=== PATIENT | female | born 1970 | race Caucasian/White ===

== ENCOUNTER → 2020-01-06 12:55 | Outpatient (CLI) | payer BC, SELFPAY ==
--- NOTE | ~2020-01-06 | MM_ITS ---
EXAMINATION: MM screening [facility] BI w emely HISTORY: Screening mammogram TECHNIQUE: Craniocaudal and mediolateral oblique 3-D tomosynthesis images were obtained and synthetic 2-D images were generated. CAD analysis was submitted and interpreted. COMPARISON: Comparison to multiple prior studies sequentially, with oldest reviewed study dated 09/2015. BREAST PARENCHYMAL COMPOSITION: There are scattered areas of fibroglandular density. FINDINGS: There is no evidence of suspicious mass, calcification, or architectural distortion to sugg est malignancy in either breast. There has been no suspicious interval change. IMPRESSION: 1. No mammographic evidence of malignancy. 2. Recommend routine screening mammography in one year. BI-RADS Category 1: Negative Reviewed, dictated and finalized at location A.
== END ==
PROVIDERS: Visit Provider Nurse Practitioner
DX: Z12.31 Encounter for screening mammogram for malignant neoplasm of breast (principal)
CPT/HCPCS: 77063; 77067

== ENCOUNTER → 2020-12-24 15:29 | Outpatient (CLI) | payer BC, SELFPAY ==
--- NOTE | ~2020-12-24 | US_ITS ---
EXAMINATION: US transvaginal DATE: 12/24/2020 15:59 INDICATION: Postmenopausal bleeding Comparison:Ultrasound dated 10/17/2015 TECHNIQUE: Multiple transabdominal and endovaginal sonographic images of the pelvis performed. FINDINGS: The uterus measures 8.3 x 4.8 x 5.9 cm. The endometrial complex measures 4 mm. The right ovary measures 2.4 x 1.8 x 3.2 cm and the left ovary measures 3 x 2.1 x 2.8 cm. There are small follicles in each ovary. Normal doppler signal in both ovaries. There is no free fluid in the pelvis. There are no abnormal masses seen on either side. IMPRESSION: 1. Unremarkable pelvic ultrasound. Reviewed, dictated and finalized at location A.
== END ==
PROVIDERS: PCP Family Medicine; Visit Provider Nurse Practitioner
DX: N95.0 Postmenopausal bleeding (principal)
CPT/HCPCS: 76830

== ENCOUNTER → 2021-02-13 08:46 | Outpatient (CLI) | payer BC, SELFPAY ==
--- NOTE | ~2021-02-13 | MM_ITS ---
EXAMINATION: MM screening [facility] BI w emely HISTORY: Screening TECHNIQUE: Craniocaudal and mediolateral oblique 3-D tomosynthesis images were obtained and synthetic 2-D images were generated. CAD analysis was submitted and interpreted. COMPARISON: Comparison to multiple prior studies sequentially, with oldest reviewed study dated 03/08. BREAST PARENCHYMAL COMPOSITION: There are scattered areas of fibroglandular density. FINDINGS: There is no evidence of suspicious mass, calcification, or architectural distortion to sugg est malignancy in either breast. There has been no suspicious interval change. IMPRESSION: 1. No mammographic evidence of malignancy. 2. Recommend routine screening mammography in one year. BI-RADS Category 1: Negative Reviewed, dictated and finalized at location A.
--- NOTE | ~2021-02-13 | DEXA_ITS ---
Bone Density Report Name: Sabine Ordonez Age: 50 Sex: Female Ethnicity: White Date of : 1970 Indication: postmenopausal; screening for osteoporosis; history of glucocorticoids; Referring Provider: Alee, Mary Study: Bone densitometry was performed. Exam Date: February 13, 2021 Accession number: [id number] Bone Density: Region BMD T-score Z-score Classification AP Spine (L1-L4) 1.073 0.2 1.0 Normal Femoral Neck (Left) 0.893 0.4 1.2 Normal Total Hip (Left) 0.995 0.4 0.9 Normal Femoral Neck (Right) 0.875 0.2 1.0 Normal Total Hip (Right) 0.951 0.1 0.6 Normal Total Hip Mean 0.973 0.3 0.8 Normal World Health Organization criteria for BMD impression classify patients as: Normal (T-score at or above -1.0), Osteopenia (T-score between -1.0 and -2.5), or Osteoporosis (T-score at or below -2.5). 10-year Fracture Risk: FRAX not reported because: All T-scores for Spine Total, Hip Total, Femoral Neck at or above -1.0 Treated for osteoporosis Clinical Information Provided by Patient: Has taken Glucocorticoids Is being treated for osteoporosis Has used the following medications: HRT (i.e. estrogen/hormone therapy), Vitamin D, MTV Patient maximum height was 67 Menopause Age: 48 No regular weight bearing exercise Does not regularly consume dairy products Drinks caffeinated beverages Onset of menses at age 12 Number of children 0 Impression: The patient has normal bone mass. The patient has risk factors, including: history of glucocorticoid therapy. Discussion: It is important to ask patients whether they are taking their medications and to encourage continued and appropriate compliance with their osteoporosis therapies to reduce fracture risk. It is also important to review their risk factors and encourage appropriate calcium and vitamin D intakes, exercise, fall prevention and other lifestyle measures. Follow-Up: Consider a repeat BMD and Vertebral Fracture Assessment (VFA) exam in 2 years or sooner if medically necessary, to reassess this patient's status. Reported by: MARION on 02/13/2021 9:33:00 AM. Reviewed, dictated and finalized at location [place] SUN
== END ==
PROVIDERS: Visit Provider Nurse Practitioner
DX: Z12.31 Encounter for screening mammogram for malignant neoplasm of breast (principal); Z78.0 Asymptomatic menopausal state; Z13.820 Encounter for screening for osteoporosis
CPT/HCPCS: 77063; 77067; 77080

== ENCOUNTER 2021-04-16 01:33 | Day surgery (SDC) | payer BC, SELFPAY ==
[2021-03-26 14:14] VITALS: BMI 34.5
[2021-04-16 07:30] VITALS: BP 151/78; PULSE 102; RESP 18; TEMP 36.4; O2SAT 99; BMI 34.9
--- NOTE | 2021-04-16 07:51 | P.PNAN_ITS ---
Anes - Initial Pre Proc Eval Procedure: Operation Date: 04/16/21 08:30 Proposed Procedures p Screening Colonoscopy - Louis Hall MD Date/Time: 04/16/21 07:51 Surgeon: Louis Hall MD Pre Op Diagnosis: neoplasm screening Patient Data Age: 50 Gender: F Height: 1.7 m Weight: 101.2 kg Last Vital Signs Temp 36.4 C 04/16/21 07:30 Pulse 102 H 04/16/21 07:30 Resp 18 04/16/21 07:30 BP 151/78 H 04/16/21 07:30 Pulse Ox 99 04/16/21 07:30 Allergies Allergy/AdvReac Type Severity Reaction Status Date / Time hydrocodone Allergy Unknown FACIAL Verified 04/16/21 07:42 SWELLING Home Medications Medication Instructions Recorded Confirmed Type amlodipine 5 mg tablet See Rx Instructions .ROUTE 02/25/21 04/16/21 Rx .COMPLEX #90 tablet hydrochlorothiazide 12.5 mg capsule See Rx Instructions .ROUTE 02/25/21 04/16/21 Rx .COMPLEX #90 cap levothyroxine 88 mcg tablet See Rx Instructions .ROUTE 02/25/21 04/16/21 Rx .COMPLEX #90 tablet estradiol 1 mg PO DAILY 03/26/21 04/16/21 History hydroxyzine HCl 25 mg PO HS 03/26/21 04/16/21 History paroxetine HCl 10 mg PO DAILY 03/26/21 04/16/21 History progesterone micronized 100 mg PO HS 03/26/21 04/16/21 History Patient hx anesthesia problems: post op nausea/vomiting Family hx anesthesia problems: none Results Review: All pre-operative results and documents have been reviewed as part of the pre-operative evaluation. [facility], LAT[facility] Past Medical History Medical History (Updated 04/16/21 @ 07:52 by Krish Jones MD) Crohn's disease in remission HTN (hypertension) Hypothyroidism Obesity Surgical History Surgical History (Updated 04/16/21 @ 07:52 by Krish Jones MD) History of bowel resection Family History Family History Father Hypertension Mother Hypertension Social History Social History Smoking packs per day: 1 Smoking cigarettes per day: 20.0 Years smoked: 30 Smoking pack-years: 30.00 Smoking status: Former smoker Smoking end date: 06/19/15 Alcohol intake: current Drinks per week: 2 Living arrangements: with family Spiritual care concerns: No Anes - Eval Final PreProcedure Day of Procedure 04/16/21 07:51 Patient weight: obese Heart: regular rate and rhythm Lungs: clear to auscultation Airway: Mallampati scale class II Neurological: alert and oriented Last oral intake: >/= 8 hours ASA classification: III Emergent: no Anesthetic plan: proceed Anesthesia type and monitoring: general GIVS and standard monitoring Results Review: All pre-operative results and documents have been reviewed as part of the pre-operative evaluation. Informed Consent: The patient's anesthetic plan and its attendant risks and benefits were discussed with the patient/family/POA. Questions were solicited and answers provided to the satisfaction of the patient/family/POA.
[2021-04-16] MEDS: LACTATED RINGERS 1,000 ML 150 ML IV CONT (08:02)
--- NOTE | 2021-04-16 08:29 | PM.HPGS ---
History of Present Illness History of Present Illness Consent: Risks, benefits, and alternatives have been discussed and questions answered. Patient agrees to proceed with procedure. Chief complaint: neoplasm screening Narrative: Sabine Ordonez is a 50 year old female here for screening colonoscopy Review of Systems Constitutional: Constitutional: Denies headache(s) and Denies weakness Eyes: Eyes: Denies blurry vision ENT: Reports Normal hearing present, Denies headache(s) and Denies neck pain Cardiovascular: Cardiovascular: Denies chest pain and Denies dyspnea Respiratory: Respiratory: Denies dyspnea Gastrointestinal: Gastrointestinal: Reports no additional gastrointestinal complaints Genitourinary: Genitourinary: Denies dysuria Musculoskeletal: Musculoskeletal: Denies neck pain Integumentary/Breasts: Skin/Breast: Denies dry skin Neurologic: Reports Normal hearing present, Denies headache(s) and Denies weakness Psychiatric: Psychiatric: Denies anxiety Endocrine: Endocrine: Denies change in body appearance Hematologic/Lymphatic: Hematologic/Lymphatic: Denies easy bleeding Allergic/Immunologic: Allergic/Immunologic: Denies urticaria [facility] Past Medical History Medical History (Updated 04/16/21 @ 08:29 by Louis Hall MD) Colon cancer screening Crohn's disease in remission HTN (hypertension) Hypothyroidism Obesity Surgical History Surgical History (Updated 04/16/21 @ 07:52 by Krish Jones MD) History of bowel resection Family History Family History Father Hypertension Mother Hypertension Social History Social History Smoking packs per day: 1 Smoking cigarettes per day: 20.0 Years smoked: 30 Smoking pack-years: 30.00 Smoking status: Former smoker Smoking end date: 06/19/15 Alcohol intake: current Drinks per week: 2 Living arrangements: with family Spiritual care concerns: No Meds Home Medications and Allergies Home Medications Medication Instructions Recorded Confirmed Type amlodipine 5 mg tablet See Rx Instructions .ROUTE 02/25/21 04/16/21 Rx .COMPLEX #90 tablet hydrochlorothiazide 12.5 mg capsule See Rx Instructions .ROUTE 02/25/21 04/16/21 Rx .COMPLEX #90 cap levothyroxine 88 mcg tablet See Rx Instructions .ROUTE 02/25/21 04/16/21 Rx .COMPLEX #90 tablet estradiol 1 mg PO DAILY 03/26/21 04/16/21 History hydroxyzine HCl 25 mg PO HS 03/26/21 04/16/21 History paroxetine HCl 10 mg PO DAILY 03/26/21 04/16/21 History progesterone micronized 100 mg PO HS 03/26/21 04/16/21 History Allergies Allergy/AdvReac Type Severity Reaction Status Date / Time hydrocodone Allergy Unknown FACIAL Verified 04/16/21 07:42 SWELLING Vital Signs Vital Signs - 24 hr 04/16/21 07:30 Temperature 97.6 F Pulse Rate 102 H Respiratory Rate 18 Blood Pressure 151/78 H Pulse Oximetry 99 Exam Const: General: comfortable and no acute distress HENMT: General nose exam: Normal nares present Eyes: General: appearance normal, both eyes and all related structures Neck: Neck: no JVD Resp: Auscultation: clear to auscultation bilaterally Cardio: Rate: regular rate Rhythm: regular rhythm GI: Inspection: non-distended GI Palp: Yes Soft to palpation Skin: General skin exam: normal color Neuro: General: gait normal Speech: normal speech Extrem: General: normal to inspection Psych: Mental Status: mental status grossly normal Assessment and Plan Assessment and plan (1) Colon cancer screening: Code(s): Z12.11 - Encounter for screening for malignant neoplasm of colon Status: Acute Assessment and Plan: colonoscopy
[2021-04-16 08:54] VITALS: BP 148/85; PULSE 97; RESP 16; O2SAT 100
[2021-04-16 09:04] VITALS: BP 158/87; PULSE 88; RESP 15; O2SAT 99
[2021-04-16 09:14] VITALS: BP 156/89; PULSE 82; RESP 23; O2SAT 98
== END 2021-04-16 09:21 | disposition home or self-care (01) ==
PROVIDERS: PCP Family Medicine; Visit Provider Internal Medicine Gastroenterology
PROC: 0DJD8ZZ Inspection of Lower Intestinal Tract, Via Natural or Artificial Opening Endoscopic (ICD-10-PCS; CPT 45378; principal; 2021-04-16 08:30)
DX: Z12.11 Encounter for screening for malignant neoplasm of colon (principal); K50.90 Crohn's disease, unspecified, without complications; K64.8 Other hemorrhoids; I10 Essential (primary) hypertension; E03.9 Hypothyroidism, unspecified; Z87.891 Personal history of nicotine dependence
CPT/HCPCS: 45378; J2001; J2704; J7120

== ENCOUNTER → 2022-03-18 10:38 | Outpatient (CLI) | payer BC, SELFPAY ==
--- NOTE | ~2022-03-18 | MM_ITS ---
EXAMINATION: MM screening [facility] w emely HISTORY: Screening mammogram TECHNIQUE: Craniocaudal and mediolateral oblique 3-D tomosynthesis images were obtained and synthetic 2-D images were generated. CAD analysis was submitted and interpreted. COMPARISON: 02/05/2021, 01/06/2020, 01/03/2019 bilateral screening mammogram examinations BREAST PARENCHYMAL COMPOSITION: There are scattered areas of fibroglandular density. FINDINGS: There is no evidence of suspicious mass, calcification, or architectural distortion to sugg est malignancy in either breast. There has been no suspicious interval change. IMPRESSION: 1. No mammographic evidence of malignancy. 2. Recommend routine screening mammography in one year. BI-RADS Category 1: Negative Reviewed, dictated and finalized at location A.
== END ==
PROVIDERS: PCP Family Medicine; Visit Provider Nurse Practitioner
DX: Z12.31 Encounter for screening mammogram for malignant neoplasm of breast (principal)
CPT/HCPCS: 77063; 77067

== ENCOUNTER → 2023-04-22 07:45 | Outpatient (CLI) | payer BC, SELFPAY ==
--- NOTE | ~2023-04-22 | MM_ITS ---
EXAMINATION: MM screening [facility] w emely HISTORY: Screening TECHNIQUE: Craniocaudal and mediolateral oblique 3-D tomosynthesis images were obtained and synthetic 2-D images were generated. CAD analysis was submitted and interpreted. COMPARISON: Comparison to multiple prior studies sequentially, with oldest reviewed study dated 12/2016. BREAST PARENCHYMAL COMPOSITION: Breast composition is almost entirely fatty FINDINGS: There is no evidence of suspicious mass, calcification, or architectural distortion to sugg est malignancy in either breast. There has been no suspicious interval change. IMPRESSION: 1. No mammographic evidence of malignancy. 2. Recommend routine screening mammography in one year. BI-RADS Category 1: Negative Reviewed, dictated and finalized at location A. 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
== END ==
PROVIDERS: PCP Nurse Practitioner; Visit Provider Nurse Practitioner
DX: Z12.31 Encounter for screening mammogram for malignant neoplasm of breast (principal)
CPT/HCPCS: 77063; 77067

== ENCOUNTER 2024-06-27 10:57 | Outpatient (CLI) | payer BC, SELFPAY ==
--- NOTE | ~2024-06-27 | MM_ITS ---
EXAMINATION: MM screening [facility] BI w emely HISTORY: Screening TECHNIQUE: Craniocaudal and mediolateral oblique 3-D tomosynthesis images were obtained and synthetic 2-D images were generated. CAD analysis was submitted and interpreted. COMPARISON: No prior mammogram is available for comparison at this institution. BREAST PARENCHYMAL COMPOSITION: Not Dense: The breasts are almost entirely fatty. FINDINGS: There is no evidence of suspicious mass, calcification, or architectural distortion to sugg est malignancy in either breast. There has been no suspicious interval change. IMPRESSION: 1. No mammographic evidence of malignancy. 2. Recommend routine screening mammography in one year. BI-RADS Category 1: Negative Reviewed, dictated and finalized at location B. CHANCELLOR
== END 2024-06-27 10:58 | disposition home or self-care (01) ==
PROVIDERS: PCP Family Medicine; Visit Provider Nurse Practitioner
DX: Z12.31 Encounter for screening mammogram for malignant neoplasm of breast (principal)
CPT/HCPCS: 77063; 77067

== ENCOUNTER 2024-12-06 11:34 | Outpatient (CLI) | payer BC, SELFPAY ==
--- NOTE | ~2024-12-06 | XR_ITS ---
Clinical Indication: Left PA and lateral views of the chest: Comparison: Nicotine dependence, shortness of breath Findings: The lungs are clear, without evidence of focal consolidation or pleural effusion. Cardiome diastinal silhouette is within normal limits. Bones and soft tissues are unremarkable. Impression: Normal chest. Reviewed, dictated and finalized at location . Impression: Normal chest.
== END 2024-12-06 11:35 | disposition home or self-care (01) ==
PROVIDERS: PCP Family Medicine; Visit Provider Nurse Practitioner Adult Health
DX: Z87.891 Personal history of nicotine dependence (principal)
CPT/HCPCS: 71046

== ENCOUNTER 2024-12-31 08:08 | Outpatient (CLI) | payer BC, SELFPAY ==
--- OUTSIDE RECORDS SUMMARY | 2024-12-31 08:17 | XMS_ITS | Encounter Summary ---
Author Organization [facility] Health Address [address] [place] [address] Care Team Providers Care Wood Casket Maker Name Role Phone Nayan Berumen MD Primary Care Provider [phone] Encounter Details Date Type Department Care Team (Late st Contact Info) Description 04/23/2019 Lab Requisition [facility] DermPath Lab [address] [place] [id number] Clementine Bergman MD [address] 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 Gender Identity Not on file Sexual Orientation Not on file documented as of this encounter Plan of Treatment Not on file documented as of this encounter Procedures Procedure Name Priority Date/Time Associated Diagnosis Comments DERMATOPATHOLOGY Routine 04/22/2019 12:0 0 AM CASTING PLUG ASSEMBLER documented in this encounter Results * DERMATOPATHOLOGY (04/22/2019 12:00 AM CASTING PLUG ASSEMBLER) Case Report Dermatopathology Report Case: [id number] Authorizing Provider: Clementine Bergman MD Collected: 04/22/2019 12:00 AM Ordering Location: [facility] DermPath Lab Received: 04/23/2019 12:21 PM Pathologist: Caity Mackenzie MD Specimen: Skin, right corner of mouth 3:05 PM [facility] DERMATOPATHOLOGY LABORATORY Final Diagnosis Specimen A. SKIN, right corner of mouth: INTRADERMAL MELANOCYTIC NEVUS (D22.39) NOT PRESENT AT SAMPLED MARGIN 3:05 PM [facility] DERMATOPATHOLOGY LABORATORY at 1505 CASTING PLUG ASSEMBLER Clinical History Nevus, BCC. Flesh colored papule, Hx MM. Check margins. 3:05 PM [facility] DERMATOPATHOLOGY LABORATORY Gross Description Specimen A: Received is one formalin filled container labeled with the patient's name and designated right corner of mouth. The specimen consists of a punch measuring [id number], bisected. The margin is inked green. Jar 0. 3:05 PM [facility] DERMATOPATHOLOGY LABORATORY Microscopic Description Specimen A. SKIN, right corner of mouth: There are nests of cytologically bland melanocytes within the dermis that mature with depth. This lesion is not present at the sampled margin of the specimen. 3:05 PM [facility] DERMATOPATHOLOGY LABORATORY Disclaimer An external and internal positive and negative controls are appropriate for the histochemical, immunohistochemical and immunofluorescence stain(s) in this case (if any), except where stated explicitly. The performance characteristics of the stain(s) cited in this report were developed and its performance characteristic determined by the Dermatopathology Laboratory at [facility], directed by Dr. Lore Bradley. These tests need not be, and therefore are not, approved by the [place] Food and Drug Administration. The tests are used for clinical purposes. Billing Codes Specimen Charges Stain Charges 98720 1 3:05 PM [facility] DERMATOPATHOLOGY LABORATORY Embedded Images 3:05 PM [facility] DERMATOPATHOLOGY LABORATORY Pathology/Cytolog y TISSUE SPECIMEN FROM SKIN / Unknown 04/22/2019 04/23/2019 12:21 PM [facility] us Clementine Bergman MD LAB - PATHOLOGY/CYTOLOGY ORD ERABLES Final Result DERMATOPATHOLOGY LABORATORY [facility] - Department of Dermatology [address] [place] [address], 5th Floor Lab [address] [place], [place] [id number] [place] [address] documented in this encounter Visit Diagnoses Not on filedocumented in this encounter Care Teams Wood Casket Maker Relationship Specialty Start Date End Date Nayan Berumen MD [address] [place] [address] PCP - General 05/14/18 documented as of this encounter
--- OUTSIDE RECORDS SUMMARY | 2024-12-31 08:17 | XMS_ITS | Encounter Summary ---
Author Organization [facility] Health Address [address] [place] [address] Care Team Providers Care Brake Engineer Name Role Phone Nayan Berumen MD Primary Care Provider [phone] Encounter Details Date Type Department Care Team (Late st Contact Info) Description 07/09/2018 Lab Requisition [facility] Care DermPath Lab [address] [facility] [address] [place] [phone] Clementine Bergman MD [address] [facility] [address] [place] [address] Social History Tobacco Use Types Packs/Day Years Used Date Smoking Tobacco: Former Cigarettes Q uit: 07/14/2015 Smokeless Tobacco: Never Alcohol Use Standard Drinks/Week Comments No 0 (1 standard drink = 0.6 oz pur e alcohol) Comments Unknown Sex and Gender Information Value Date Recorded Sex Assigned at Not on file Legal Sex Female 2:00 PM CONCRETER Gender Identity Not on file Sexual Orientation Not on file documented as of this encounter Plan of Treatment Not on file documented as of this encounter Procedures Procedure Name Priority Date/Time Associated Diagnosis Comments DERMATOPATH TECHNICAL REPORT Routine 07/09/2018 12:00 AM CONCRETER documented in this encounter Results * DERMATOPATH TECHNICAL REPORT (07/09/2018 12:00 AM CONCRETER) Case Report Dermatopathology Report Case: [id number] Authorizing Provider: Clementine Bergman MD Collected: 07/09/2018 12:00 AM Pathologist: Sari Bradley MD Received: 07/09/2018 02:04 PM Specimens: A) - Skin, post neck B) - Skin, right abdomen 1:11 PM [facility] DERMATOPATHOLOGY LABORATORY Addendum 1 At the request of the diagnosing physician, the technical component for S100 and MART-1/Melan A on Specimen A and a MART 1/Melan A on Specimen B was performed by [facility] Dermatopathology Laboratory. 1:11 PM [facility] DERMATOPATHOLOGY LABORATORY Addendum electronically signed by Sari Bradley MD on 07/13/2018 at 1311 CONCRETER Clinical History A: Cystic nodule, hx of MM favor cyst. B: R/O melanoma. Irregular color BM papule. Dev's nevus no MM. 1:11 PM [facility] DERMATOPATHOLOGY LABORATORY Gross Description Specimen A: Received is one formalin filled container labeled with the patient's name and designated post neck. The specimen consists of a punch measuring [id number], bisected. Jar 0. Specimen B: Received is one formalin filled container labeled with the patient's name and designated right abdomen. The specimen consists of a shave measuring [id number]. Jar 0. [facility] Dermatopathology Laboratory performed the technical component only. 1:11 PM [facility] DERMATOPATHOLOGY LABORATORY Embedded Images 1:11 PM [facility] DERMATOPATHOLOGY LABORATORY DISCLAIMER An external and internal positive and negative controls are appropriate for the histochemical, immunohistochemical and immunofluorescence stain(s) in this case (if any), except where stated explicitly. The performance characteristics of the stain(s) cited in this report were developed and its performance characteristic determined by the Dermatopathology Laboratory at [facility], directed by Dr. Lore Bradley. These tests need not be, and therefore are not, approved by the [place] Food and Drug Administration. The tests are used for clinical purposes. 1:11 PM [facility] DERMATOPATHOLOGY LABORATORY at 15[address] CONCRETER Pathology/Cytology TISSUE SPECIMEN FROM SKIN / Unknown 07/09/2018 07/09/2018 2:04 PM CONCRETER Miscellaneous samples (specimen) TISSUE SPECIMEN FROM SKIN / Unknown 07/09/2018 07/09/2018 2:04 PM CONCRETER Clementine Bergman MD LAB - PATHOLOGY/CYTOLOGY ORD ERABLES Edited Result - Final DERMATOPATHOLOGY LABORATORY [facility] - Department of Dermatology [address] [place] [address], 5th Floor Lab [address] [phone] documented in this encounter Visit Diagnoses Not on filedocumented in this encounter Care Teams Brake Engineer Relationship Specialty Start Date End Date Nayan Berumen MD [address] [place] [phone] PCP - General 05/14/18 documented as of this encounter
--- OUTSIDE RECORDS SUMMARY | 2024-12-31 08:17 | XMS_ITS | Encounter Summary ---
Author Organization [facility] Health Address [address] [facility] [place] [address] Care Team Providers Care Commission Broker Name Role Phone Nayan Berumen MD Primary Care Provider [phone] Encounter Details Date Type Department Care Team (Late st Contact Info) Description 02/11/2020 Lab Requisition [facility] DermPath Lab [address] [facility], [place] [phone] Clementine Bergman MD [address] [facility] 3 [place] [address] Social History Tobacco Use Types Packs/Day Years Used Date Smoking Tobacco: Former Cigarettes Q uit: 07/14/2015 Smokeless Tobacco: Never Alcohol Use Standard Drinks/Week Comments No 0 (1 standard drink = 0.6 oz pur e alcohol) Comments Unknown Sex and Gender Information Value Date Recorded Sex Assigned at Not on file Legal Sex Female 2:00 PM SEAL SKINNER Gender Identity Not on file Sexual Orientation Not on file documented as of this encounter Plan of Treatment Not on file documented as of this encounter Procedures Procedure Name Priority Date/Time Associated Diagnosis Comments DERMATOPATHOLOGY Routine 02/10/2020 12:0 0 AM CDT documented in this encounter Results * DERMATOPATHOLOGY (02/10/2020 12:00 AM CDT) Case Report Dermatopathology Report Case: [id number] Authorizing Provider: Clementine Bergman MD Collected: 02/10/2020 12:00 AM Ordering Location: [facility] DermPath Lab Received: 02/11/2020 10:49 AM Pathologist: Caity Mackenzie MD Specimen: Skin, left foot 0 1:53 PM CDT DERMATOPATHOLOGY LABORATORY Final Diagnosis Specimen A. SKIN, left foot: INTRADERMAL MELANOCYTIC NEVUS, OF ACRAL SKIN (D22.72) 0 1:53 PM CDT DERMATOPATHOLOGY LABORATORY at 1353 CDT Clinical History SCC vs MM vs VV. 0 1:53 PM CDT DERMATOPATHOLOGY LABORATORY Gross Description Specimen A: Received is one formalin filled container labeled with the patient's name and designated left foot. The specimen consists of a shave biopsy measuring [id number]. Jar 0. 0 1:53 PM CDT DERMATOPATHOLOGY LABORATORY Microscopic Description Specimen A. SKIN, left foot: Sections show acral type skin with collections of melanocytes in the upper dermis. 0 1:53 PM CDT DERMATOPATHOLOGY LABORATORY Disclaimer An external and internal positive and negative controls are appropriate for the histochemical, immunohistochemical and immunofluorescence stain(s) in this case (if any), except where stated explicitly. The performance characteristics of the stain(s) cited in this report were developed and its performance characteristic determined by the Dermatopathology Laboratory at [facility], directed by Dr. Lore Bradley. These tests need not be, and therefore are not, approved by the [place] Food and Drug Administration. The tests are used for clinical purposes. Billing Codes Specimen Charges Stain Charges 39903 1 0 1:53 PM CDT DERMATOPATHOLOGY LABORATORY Embedded Images 0 1:53 PM CDT DERMATOPATHOLOGY LABORATORY Pathology/Cytolog y TISSUE SPECIMEN FROM SKIN / Unknown 02/10/2020 02/11/2020 10:49 AM CDT us Clementine Bergman MD LAB - PATHOLOGY/CYTOLOGY ORD ERABLES Final Result DERMATOPATHOLOGY LABORATORY [facility] - Department of Dermatology [facility]/[address] [address], [facility] [phone] documented in this encounter Visit Diagnoses Not on filedocumented in this encounter Care Teams Commission Broker Relationship Specialty Start Date End Date Nayan Berumen MD [address] [place] [phone] PCP - General 05/14/18 documented as of this encounter
--- OUTSIDE RECORDS SUMMARY | 2024-12-31 08:17 | XMS_ITS | Clinical Summary ---
Author Organization [facility] [employer] Address [address] [place] [address] Care Team Providers Care Radiation Oncology Manager Name Role Phone Nayan Berumen MD Primary Care Provider [phone] Source Comments [facility] [employer],non-owned Affiliates and Associated Physician Practices is amultiple site organization consisting of ambulatory clinics and hospital sitesin [place], [place] and [place]. This disclosure is being madepursuant to the Care Everywhere program and may not contain all information available regarding this patient. Last updated 18.[facility] [employer] Allergies No known active allergies Medications * Be aware that medications may not be up to date on this document. Alwaysverify current medications with the patient. amLODIPine (NORVASC) 5 MG tablet Take 5 mg by mouth at bedtime 8 Active fluticasone propionate (FLONASE) 50 MCG/ACT nasal spray [place] 1 spray into each nostril 2 times daily 8 Active hydroCHLOROthia zide (MICROZIDE) 12.5 MG capsule 8 Active SYNTHROID 88 MCG tablet Take 88 mcg by mouth daily before breakfast 8 Active oxybutynin (DITROPAN) 5 MG tablet Take 2.5 mg by mouth 2 times daily 8 Active PARoxetine (PAXIL) 10 MG tablet Take 10 mg by mouth at bedtime 8 Active vitamin C (ASCORBIC ACID) 1000 MG tablet Take 1,000 mg by mouth once daily Active ibuprofen (MOTRIN) 800 MG tablet Take 1 tablet by mouth every 8 hours as needed for Pain 20 tablet 12/06/201 8 Active Active Problems Problem Noted Date Diagnosed Date 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 Cancer Staging:Clinical:Stage IB(cT1b, cN0, cM0) - Unsigned Pathologic stage from 03/01/2019:Stage IA(pT1b, pN0, cM0) - Signed by David Souza MD on 03/01/2019 Family History Medical History Relation Name Comments Cancer - Other Father Hypertension Father Cancer - Other Mother Relation Name Status Comments Father Mother Social History Tobacco Use Types Packs/Day Years Used Date Smoking Tobacco: Former Cigarettes Q uit: 07/14/2015 Smokeless Tobacco: Never Alcohol Use Standard Drinks/Week Comments No 0 (1 standard drink = 0.6 oz pur e alcohol) Comments Unknown Sex and Gender Information Value Date Recorded Sex Assigned at Not on file Legal Sex Female 2:00 PM WHEEL AND AXLE INSPECTOR Gender Identity Not on file Sexual Orientation Not on file Last Filed Vital Signs Vital Sign Reading Time Taken Comments Blood Pressure 149/78 06/25/2018 12:51 PM WHEEL AND AXLE INSPECTOR Pulse 73 06/25/2018 12:51 PM WHEEL AND AXLE INSPECTOR Temperature 37 C (98.6 F) 06/25/2018 12:51 PM WHEEL AND AXLE INSPECTOR Respiratory Rate 14 05/24/2018 12:50 PM WHEEL AND AXLE INSPECTOR Oxygen Saturation 97% 06/25/2018 12:51 PM WHEEL AND AXLE INSPECTOR Inhaled Oxygen Concentration - - Weight 98 kg (216 lb) 06/25/2018 12:51 PM WHEEL AND AXLE INSPECTOR Height 170.2 cm (5' 7) 06/25/2018 12:51 PM WHEEL AND AXLE INSPECTOR Body Mass Index 33.83 06/25/2018 12:51 PM WHEEL AND AXLE INSPECTOR Plan of Treatment Health Maintenance Due Date Last Done Comments COLOGUARD (AGES 45-75) - COL ON CA SCREENING 1970 COLON MONITORING 1970 COLONOSCOPY - COLON CA SCREENING 1970 CT COLONOGRAPHY - COLON CA SCREENING 1970 Colorectal Cancer Screening 1970 FIT - COLON CA SCREENING 1970 FLEX SIG - COLON CA SCREENING 1970 LIPID TESTING 1970 MAMMOGRAM 1970 HIV SCREENING 1985 HEPATITIS C SCREENING 05/22/1988 DTAP/TDAP/TD VACCINES (1 - Tdap) 1989 HEPATITIS B VACCINE (1 of 3 - 19+ 3-dose series) 1989 PAP with HPV 2000 PNEUMOCOCCAL VACCINE 50+ (1 of 1 - PCV) 2020 ZOSTER VACCINE (1 of 2) 2020 SCREENING FOR DIABETES 05/14/2021 05/14/2018 COVID-19 VACCINE (1 - 2023-2 5 season) 2024 DEPRESSION SCREENING 06/19/2024 INFLUENZA VACCINE (#1) 2025 HIB VACCINE Aged Out No longer eligi ble based on patient's age to complete this topic HPV VACCINE Aged Out No longer eligi ble based on patient's age to complete this topic MENINGOCOCCAL (Group B) VACC INE SHARED DECISION-MAKING Aged Out No longer eligibl e based on patient's age to complete this topic MENINGOCOCCAL GROUPS A/C/Y/W VACCINE Aged Out No longer eligible b ased on patient's age to complete this topic Procedures Procedure Name Priority Date/Time Associated Diagnosis Comments COMPREHENSIVE METABOLIC PANEL Routine 05/14/2018 3:09 PM WHEEL AND AXLE INSPECTOR Melanoma of thigh, right from Last 3 Months or Most Recently Relevant to Health Maintenance Results * (ABNORMAL) COMPREHENSIVE METABOLIC PANEL (05/14/2018 3:09 PM WHEEL AND AXLE INSPECTOR) BUN 12 7 - 26 mg/dL 05/14/2018 3:33 PM [facility] Creatinine 0.9 0.6 - 1.2 mg/dL 05/14/2018 3:33 PM [facility] Sodium 138 136 - 145 mmol/L 05/14/2018 3:33 PM [facility] Potassium 3.9 3.5 - 4.5 mmol/L 05/14/2018 3:33 PM [facility] Chloride 101 98 - 107 mmol/L 05/14/2018 3:33 PM [facility] CO2 23 22 - 29 mmol/L 05/14/2018 3:33 PM [facility] Glucose 95 70 - 115 mg/dL 05/14/2018 3:33 PM [facility] Calcium 10.0 8.4 - 10.2 mg/dL 05/14/2018 3:33 PM [facility] Protein Total 8.7(H) 6.0 - 8.3 g/dL 05/14/2018 3:33 PM [facility] Albumin 4.3 3.4 - 5.0 g/dL 05/14/2018 3:33 PM [facility] Bilirubin Total 0.4 0.2 - 1.2 mg/dL 05/14/2018 3:33 PM [facility] Alkaline Phosphatase 82 40 - 150 Units/L 05/14/2018 3:33 PM [facility] ALT 23 0 - 55 Units/L 05/14/2018 3:33 PM [facility] AST 22 5 - 34 Units/L 05/14/2018 3:33 PM [facility] Anion Gap 18 8 - 18 05/14/2018 3:33 PM [facility] BUN/Creatinine Ratio 13 7 - 23 05/14/2018 3:33 PM [facility] Osmolality Calculated 286 270 - 300 mOsm/kg 05/14/2018 3:33 PM [facility] Albumin/Globulin Ratio 1.0(L) 1.1 - 2.3 05/14/2018 3:33 PM [facility] eGFR >60 >60 mL/min/1.7 3 m2 05/14/2018 3:33 PM [facility] Blood BLOOD SPECIMEN / Unknown Lab Venipuncture / Unknown 05/14/2018 3:09 PM WHEEL AND AXLE INSPECTOR 05/14/2018 3:14 PM WHEEL AND AXLE INSPECTOR David Souza MD LAB - CHEMISTRY ORDERABLES Final Result Performing Organization Address [facility]/State/ZIP Co de Phone Number [facility] [address] [place] [address] from Last 3 Months or Most Recently Relevant to Health Maintenance Insurance [facility] Advance Directives * Full Code (Latest Code Status on File) Date Activated Date Inactivated Comments 05/24/2018 7:46 AM 05/24/2018 2:44 PM Care Teams Radiation Oncology Manager Relationship Specialty Start Date End Date Nayan Berumen MD [address] [place] [address] PCP - General 05/14/18
--- OUTSIDE RECORDS SUMMARY | 2024-12-31 08:17 | XMS_ITS | Encounter Summary ---
Author Organization [facility] Health Address [address] [place] [address] Care Team Providers Care Activity Therapy Specialist Name Role Phone Nayan Berumen MD Primary Care Provider [phone] Encounter Details Date Type Department Care Team (Late st Contact Info) Description 05/20/2019 Lab Requisition [facility] DermPath Lab [address] [facility], [place] [phone] Clementine Bergman MD [address] [facility] [address] [place] [address] Social History Tobacco Use Types Packs/Day Years Used Date Smoking Tobacco: Former Cigarettes Q uit: 07/14/2015 Smokeless Tobacco: Never Alcohol Use Standard Drinks/Week Comments No 0 (1 standard drink = 0.6 oz pur e alcohol) Comments Unknown Sex and Gender Information Value Date Recorded Sex Assigned at Not on file Legal Sex Female 2:00 PM SANDBLAST OR SHOTBLAST EQUIPMENT TENDER Gender Identity Not on file Sexual Orientation Not on file documented as of this encounter Plan of Treatment Not on file documented as of this encounter Procedures Procedure Name Priority Date/Time Associated Diagnosis Comments DERMATOPATHOLOGY Routine 05/20/2019 12:0 0 AM SANDBLAST OR SHOTBLAST EQUIPMENT TENDER documented in this encounter Results * DERMATOPATHOLOGY (05/20/2019 12:00 AM SANDBLAST OR SHOTBLAST EQUIPMENT TENDER) Case Report Dermatopathology Report Case: [id number] Authorizing Provider: Clementine Bergman MD Collected: 05/20/2019 12:00 AM Ordering Location: [facility] DermPath Lab Received: 05/20/2019 12:56 PM Pathologist: Sari Bradley MD Specimen: Skin, post scalp 2:05 PM [facility] DERMATOPATHOLOGY LABORATORY Final Diagnosis Specimen A. 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 2:05 PM [facility] DERMATOPATHOLOGY LABORATORY Gross Description Specimen A: Received is one formalin filled container labeled with the patient's name and designated post scalp.The specimen consists of an ellipse measuring [id number] and is oriented with the snotch at the 11 o'clock position, not labeled on the requisition. The 12 to 6 o'clock margin is inked green. The 6 o'clock to 12 o'clock margin is inked black. The 12 o'clock tip is submitted in cassette 1. The 6 o'clock tip is submitted in cassette 2. The remainder of the ellipse is serially sectioned and submitted in cassettes 3-5. Jar 0. 2:05 PM [facility] DERMATOPATHOLOGY LABORATORY Microscopic Description Specimen A. SKIN, post scalp: Within the dermis, there are very large cells with distinct cellular membranes surrounding pale eosinophilic cytoplasm that contain numerous small granules. There is epidermal hyperplasia. This lesion is present at the base of the specimen in block A4. There are fibroblasts and collagen bundles oriented parallel to the skin surface with elongated blood vessels, some of which are oriented perpendicular to the skin surface. 2:05 PM [facility] DERMATOPATHOLOGY LABORATORY Disclaimer An external and internal positive and negative controls are appropriate for the histochemical, immunohistochemical and immunofluorescence stain(s) in this case (if any), except where stated explicitly. The performance characteristics of the stain(s) cited in this report were developed and its performance characteristic determined by the Dermatopathology Laboratory at [facility], directed by Dr. Lore Bradley. These tests need not be, and therefore are not, approved by the [place] Food and Drug Administration. The tests are used for clinical purposes. Billing Codes Specimen Charges Stain Charges 19467 1 2:05 PM [facility] DERMATOPATHOLOGY LABORATORY Embedded Images 2:05 PM [facility] DERMATOPATHOLOGY LABORATORY Pathology/Cytolog y TISSUE SPECIMEN FROM SKIN / Unknown 05/20/2019 05/20/2019 12:56 PM SANDBLAST OR SHOTBLAST EQUIPMENT TENDER Clementine Bergman MD LAB - PATHOLOGY/CYTOLOGY ORD ERABLES Final Result DERMATOPATHOLOGY LABORATORY [facility] - Department of Dermatology [address] [place] [address], 5th Floor Lab [address] [phone] documented in this encounter Visit Diagnoses Not on filedocumented in this encounter Care Teams Activity Therapy Specialist Relationship Specialty Start Date End Date Nayan Berumen MD [address] [place] [address] PCP - General 05/14/18 documented as of this encounter
--- OUTSIDE RECORDS SUMMARY | 2024-12-31 08:17 | XMS_ITS | Encounter Summary ---
Author Organization [facility] Health Address [address] [place] [address] Care Team Providers Care Advertiser Name Role Phone Nayan Berumen MD Primary Care Provider [phone] Encounter Details Date Type Department Care Team (Late st Contact Info) Description 05/02/2018 Lab Requisition [facility] [address] [facility], [place] [phone] Danielle Puckett DO [address] [facility] [address] [place] [address] Social History Tobacco Use Types Packs/Day Years Used Date Smoking Tobacco: Never Assessed Comments Unknown Sex and Gender Information Value Date Recorded Sex Assigned at Not on file Legal Sex Female 2:00 PM DELI COOK Gender Identity Not on file Sexual Orientation Not on file documented as of this encounter Plan of Treatment Not on file documented as of this encounter Procedures Procedure Name Priority Date/Time Associated Diagnosis Comments DERMATOPATH TECHNICAL REPORT Routine 05/01/2018 12:00 AM DELI COOK documented in this encounter Results * DERMATOPATH TECHNICAL REPORT (05/01/2018 12:00 AM DELI COOK) Amended Report See Global Case [id number]. 8 9:46 AM [facility] DERMATOP[facility]Y [facility]ATORY Case Report Dermatopathology Report Case: [id number] Authorizing Provider: Danielle Puckett DO Collected: 05/01/2018 12:00 AM Pathologist: Caity Mackenzie MD Received: 05/02/2018 07:35 AM Specimens: A) - Skin, left zygoma B) - Skin, left lower cheek C) - Skin, right thigh D) - Skin, right mid back E) - Skin, mid upper back F) - Skin, mid low back 9:46 AM [facility] DERMATOPATHOLOGY LABORATORY Clinical History A: R/O nevus, irritated. B-C: R/O BCC, irritated, non-healing. D: R/O lentiginous nevus vs MM, irregular color. E: Previously inflamed cyst - firm nodule. F: R/O lentiginous nevus vs MM, irregular color. 9:46 AM [facility] DERMATOPATHOLOGY LABORATORY Gross Description Specimen A: Received is one formalin filled container labeled with the patient's name and designated left zygoma. The specimen consists of a shave measuring 7d2p0rj. Jar 0. Specimen B: Received is one formalin filled container labeled with the patient's name and designated left lower cheek. The specimen consists of a shave measuring 9d8w5nt. Jar 0. Specimen C: Received is one formalin filled container labeled with the patient's name and designated right thigh. The specimen consists of a shave measuring 3z0v5ab. Jar 0. Specimen D: Received is one formalin filled container labeled with the patient's name and designated right mid back. The specimen consists of a shave measuring 8z8q0tw. Jar 0. Specimen E: Received is one formalin filled container labeled with the patient's name and designated mid upper back. The specimen consists of a shave measuring 36u0w9ua. Jar 0. Specimen F: Received is one formalin filled container labeled with the patient's name and designated mid low back. The specimen consists of a shave measuring 2u1a7tm. Jar 0. [facility] Dermatopathology Laboratory performed the technical component only. 9:46 AM [facility] DERMATOPATHOLOGY LABORATORY Embedded Images 9:46 AM [facility] DERMATOPATHOLOGY LABORATORY DISCLAIMER An external and internal positive and negative controls are appropriate for the histochemical, immunohistochemical and immunofluorescence stain(s) in this case (if any), except where stated explicitly. The performance characteristics of the stain(s) cited in this report were developed and its performance characteristic determined by the Dermatopathology Laboratory at [facility]. These tests need not be, and therefore are not, approved by the [place] Food and Drug Administration. The tests are used for clinical purposes. 11/21/201 8 9:46 AM [facility] DERMATOPATHOLOGY LABORATORY Amendment electronically signed by Caity Mackenzie MD on 05/09/2018 at 0946 DELI COOK at 1517 [facility] COOK Pathology/Cytology TISSUE SPECIMEN FROM SKIN / Unknown 05/01/2018 05/02/2018 7:35 AM [facility] COOK Miscellaneous samples (specimen) TISSUE SPECIMEN FROM SKIN / Unknown 05/01/2018 05/02/2018 7:35 AM [facility] COOK Miscellaneous samples (specimen) TISSUE SPECIMEN FROM SKIN / Unknown 05/01/2018 05/02/2018 7:35 AM [facility] COOK Miscellaneous samples (specimen) TISSUE SPECIMEN FROM SKIN / Unknown 05/01/2018 05/02/2018 7:35 AM DELI COOK Miscellaneous samples (specimen) TISSUE SPECIMEN FROM SKIN / Unknown 05/01/2018 05/02/2018 7:35 AM [facility]I COOK Miscellaneous samples (specimen) TISSUE SPECIMEN FROM SKIN / Unknown 05/01/2018 05/02/2018 7:35 AM [facility]I COOK us Danielle Puckett DO LAB - PATHOLOGY/CYTOLOGY ORDERABLES Edited Result - Final DERMATOPATHOLOGY LABORATORY [facility] - Department of Dermatology [address] [place] [address] documented in this encounter Visit Diagnoses Not on filedocumented in this encounter Care Teams Advertiser Relationship Specialty Start Date End Date Nayan Berumen MD [address] [place] [address] PCP - General 05/14/18 documented as of this encounter
--- OUTSIDE RECORDS SUMMARY | 2024-12-31 08:17 | XMS_ITS | Encounter Summary ---
Author Organization [facility] Address [address] [facility] [place] [address] Care Team Providers Care Installer Interior Assemblies Name Role Phone Nayan Berumen MD Primary Care Provider [phone] Encounter Details Date Type Department Care Team (Late st Contact Info) Description 10/11/2018 Lab Requisition [facility] Care DermPath Lab [address] [facility] [place] [phone] Clementine Bergman MD [address] [facility] 3 [place] [address] Social History Tobacco Use Types Packs/Day Years Used Date Smoking Tobacco: Former Cigarettes Q uit: 07/14/2015 Smokeless Tobacco: Never Alcohol Use Standard Drinks/Week Comments No 0 (1 standard drink = 0.6 oz pur e alcohol) Comments Unknown Sex and Gender Information Value Date Recorded Sex Assigned at Not on file Legal Sex Female 2:00 PM FOREST SUPERVISOR Gender Identity Not on file Sexual Orientation Not on file documented as of this encounter Plan of Treatment Not on file documented as of this encounter Procedures Procedure Name Priority Date/Time Associated Diagnosis Comments DERMATOPATHOLOGY Routine 10/10/2018 12:0 0 AM CDT documented in this encounter Results * DERMATOPATHOLOGY (10/10/2018 12:00 AM CDT) Case Report Dermatopathology Report Case: [id number] Authorizing Provider: Clementine Bergman MD Collected: 10/10/2018 12:00 AM Pathologist: Violeta Ferrer MD Received: 10/11/2018 10:51 AM Specimen: Skin, right thigh 9 1:21 PM CDT DERMATOPATHOLOGY LABORATORY Final Diagnosis Specimen A. SKIN, right thigh: A[place]ON (SOFT FIBROMA, SKIN TAG) (L91.8) 9 1:21 PM CDT DERMATOPATHOLOGY LABORATORY at 1321 CDT Clinical History Hx of MM pink papule, SK, nevus CA. 1:21 PM CDT DERMATOPATHOLOGY LABORATORY Gross Description Specimen A: Received is one formalin filled container labeled with the patient's name and designated right thigh. The specimen consists of a shave measuring 8b2x1xi. Jar 0. 1:21 PM CDT DERMATOPATHOLOGY LABORATORY Microscopic Description Specimen A. SKIN, right thigh: There is a gently folded epidermis surrounding a connective tissue core in which fat and collagen are intermingled. 1:21 PM CDT DERMATOPATHOLOGY LABORATORY Disclaimer An external and internal positive and negative controls are appropriate for the histochemical, immunohistochemical and immunofluorescence stain(s) in this case (if any), except where stated explicitly. The performance characteristics of the stain(s) cited in this report were developed and its performance characteristic determined by the Dermatopathology Laboratory at [facility], directed by Dr. Lore Bradley. These tests need not be, and therefore are not, approved by the [place] Food and Drug Administration. The tests are used for clinical purposes. Billing Codes Specimen Charges Stain Charges 90518 1 9 1:21 PM CDT DERMATOPATHOLOGY LABORATORY Embedded Images 1:21 PM CDT DERMATOPATHOLOGY LABORATORY Pathology/Cytolog y TISSUE SPECIMEN FROM SKIN / Unknown 10/10/2018 10/11/2018 10:51 AM CDT us Clementine Bergman MD LAB - PATHOLOGY/CYTOLOGY ORD ERABLES Final Result DERMATOPATHOLOGY LABORATORY [facility] - Department of Dermatology [address] [facility] 5th [place] [address], [facility] [phone] documented in this encounter Visit Diagnoses Not on filedocumented in this encounter Care Teams Installer Interior Assemblies Relationship Specialty Start Date End Date Nayan Berumen MD [address] [place] [phone] PCP - General 05/14/18 documented as of this encounter
--- OUTSIDE RECORDS SUMMARY | 2024-12-31 08:17 | XMS_ITS | Encounter Summary ---
Author Organization [facility] Address [address] [facility] [place] [address] Care Team Providers Care Nail Expert Name Role Phone Nayan Berumen MD Primary Care Provider [phone] Encounter Details Date Type Department Care Team (Late st Contact Info) Description 08/09/2019 Lab Requisition [facility] DermPath Lab [address] [facility] [place] [phone] Clementine Bergman MD [address] [facility] 3 [place] [address] Social History Tobacco Use Types Packs/Day Years Used Date Smoking Tobacco: Former Cigarettes Q uit: 07/14/2015 Smokeless Tobacco: Never Alcohol Use Standard Drinks/Week Comments No 0 (1 standard drink = 0.6 oz pur e alcohol) Comments Unknown Sex and Gender Information Value Date Recorded Sex Assigned at Not on file Legal Sex Female 2:00 PM PROFESSOR OF LEGAL STUDIES Gender Identity Not on file Sexual Orientation Not on file documented as of this encounter Plan of Treatment Not on file documented as of this encounter Procedures Procedure Name Priority Date/Time Associated Diagnosis Comments DERMATOPATHOLOGY Routine 08/08/2019 12:0 0 AM PROFESSOR OF LEGAL STUDIES documented in this encounter Results * DERMATOPATHOLOGY (08/08/2019 12:00 AM PROFESSOR OF LEGAL STUDIES) Case Report Dermatopathology Report Case: [id number] Authorizing Provider: Clementine Bergman MD Collected: 08/08/2019 12:00 AM Ordering Location: [facility] DermPath Lab Received: 08/09/2019 11:27 AM Pathologist: Caity Mackenzie MD Specimens: A) - Skin, left neck B) - Skin, right shoulder C) - Skin, right back 0 12:30 PM PROFESSOR OF LEGAL STUDIES DERMATOPATHOLOGY LABORATORY Final Diagnosis Specimen A. SKIN, left neck: INTRADERMAL MELANOCYTIC NEVUS (D22.4) Specimen B. SKIN, right shoulder: INTRADERMAL NEVUS, NEUROTIZED (D22.9) Specimen C. SKIN, right back: INTRADERMAL NEVUS, NEUROTIZED (D22.9) 0 12:30 PM PROFESSOR OF LEGAL STUDIES DERMATOPATHOLOGY LABORATORY at 1230 PROFESSOR OF LEGAL STUDIES Clinical History A-C: History of MM. 0 12:30 PM PROFESSOR OF LEGAL STUDIES DERMATOPATHOLOGY LABORATORY Gross Description Specimen A: Received is one formalin filled container labeled with the patient's name and designated left neck. The specimen consists of a shave biopsy measuring 6x5x3 mm. Jar 0. Specimen B: Received is one formalin filled container labeled with the patient's name and designated right shoulder. The specimen consists of a shave biopsy measuring 7x5x2 mm. Jar 0. Specimen C: Received is one formalin filled container labeled with the patient's name and designated right back. The specimen consists of a shave biopsy measuring 7x6x4 mm, bisected. Jar 0. 0 12:30 PM PROFESSOR OF LEGAL STUDIES DERMATOPATHOLOGY LABORATORY Microscopic Description Specimen A. SKIN, left neck: There are nests of cytologically bland melanocytes within the dermis that mature with depth. Specimen B. SKIN, right shoulder: Sections show nests, cords, and strands of cytologically bland melanocytes that mature with descent into the dermis. There are areas in which the melanocytes have a neuroid appearance. Specimen C. SKIN, right back: Sections show nests, cords, and strands of cytologically bland melanocytes that mature with descent into the dermis. There are areas in which the melanocytes have a neuroid appearance. 0 12:30 PM PROFESSOR OF LEGAL STUDIES DERMATOPATHOLOGY LABORATORY Disclaimer An external and internal positive and negative controls are appropriate for the histochemical, immunohistochemical and immunofluorescence stain(s) in this case (if any), except where stated explicitly. The performance characteristics of the stain(s) cited in this report were developed and its performance characteristic determined by the Dermatopathology Laboratory at [facility], directed by Dr. Lore Bradley. These tests need not be, and therefore are not, approved by the [place] Food and Drug Administration. The tests are used for clinical purposes. Billing Codes Specimen Charges Stain Charges 72296 23118 98605 1 1 1 0 12:30 PM PROFESSOR OF LEGAL STUDIES DERMATOPATHOLOGY LABORATORY Embedded Images 0 12:30 PM PROFESSOR OF LEGAL STUDIES DERMATOPATHOLOGY LABORATORY Pathology/Cytology TISSUE SPECIMEN FROM SKIN / Unknown 08/08/2019 08/09/2019 11:27 AM PROFESSOR OF LEGAL STUDIES Miscellaneous samples (specimen) TISSUE SPECIMEN FROM SKIN / Unknown 08/08/2019 08/09/2019 11:27 AM PROFESSOR OF LEGAL STUDIES Miscellaneous samples (specimen) TISSUE SPECIMEN FROM SKIN / Unknown 08/08/2019 08/09/2019 11:27 AM PROFESSOR OF LEGAL STUDIES Clementine Bergman MD LAB - PATHOLOGY/CYTOLOGY ORD ERABLES Final Result DERMATOPATHOLOGY LABORATORY [facility] - Department of Dermatology [address] [place] [address] 5th Floor Lab [address] [phone] documented in this encounter Visit Diagnoses Not on filedocumented in this encounter Care Teams Nail Expert Relationship Specialty Start Date End Date Nayan Berumen MD [address] [place] [address] PCP - General 05/14/18 documented as of this encounter
--- OUTSIDE RECORDS SUMMARY | 2024-12-31 08:17 | XMS_ITS | Encounter Summary ---
Author Organization [facility] Address [address] [facility] [place] [address] Care Team Providers Care Concrete Mixing Plant Laborer Name Role Phone Nayan Berumen MD Primary Care Provider [phone] Encounter Details Date Type Department Care Team (Late st Contact Info) Description 05/07/2018 Lab Requisition [facility] D[facility] Lab [address] [facility] [place] [phone] Danielle Puckett DO [address] [facility] 3 [place] [address] Social History Tobacco Use Types Packs/Day Years Used Date Smoking Tobacco: Never Assessed Comments Unknown Sex and Gender Information Value Date Recorded Sex Assigned at Not on file Legal Sex Female 2:00 PM ROUTE DELIVERER Gender Identity Not on file Sexual Orientation Not on file documented as of this encounter Plan of Treatment Not on file documented as of this encounter Procedures Procedure Name Priority Date/Time Associated Diagnosis Comments DERMATOPATHOLOGY Routine 05/01/2018 12:0 0 AM ROUTE DELIVERER documented in this encounter Results * DERMATOPATHOLOGY (05/01/2018 12:00 AM ROUTE DELIVERER) Case Report Dermatopathology Report Case: [id number] Authorizing Provider: Danielle Puckett DO Collected: 05/01/2018 12:00 AM Pathologist: Maria Fernanda Echavarria MD Received: 05/07/2018 11:57 AM Specimens: A) - Skin, left zygoma B) - Skin, left lower cheek C) - Skin, right thigh D) - Skin, right mid back E) - Skin, mid upper back F) - Skin, mid low back 8 11:54 AM [facility] DERMATOPATHOLOGY LABORATORY Final Diagnosis Specimen A. SKIN, left zygoma: INTRADERMAL MELANOCYTIC NEVUS (D22.39) Specimen B. SKIN, left lower cheek: COMPOUND MELANOCYTIC NEVUS, IRRITATED (D22.39) Specimen C. SKIN, right thigh: MALIGNANT MELANOMA; PRESENT AT MARGIN (C43.71) (see microscopic description and comment) (see synoptic report) Specimen D. SKIN, right mid back: LENTIGINOUS MELANOCYTIC NEVUS, COMPOUND TYPE, IRRITATED (COMPOUND MELANOCYTIC NEVUS WITH ARCHITECTURAL DISORDER) (D22.5) Specimen E. SKIN, mid upper back: LENTIGINOUS MELANOCYTIC NEVUS, COMPOUND TYPE, IRRITATED (COMPOUND MELANOCYTIC NEVUS WITH ARCHITECTURAL DISORDER) (D22.5) Specimen F. SKIN, mid low back: LENTIGINOUS MELANOCYTIC NEVUS, COMPOUND TYPE, IRRITATED (COMPOUND MELANOCYTIC NEVUS WITH ARCHITECTURAL DISORDER) (D22.5) 8 11:54 AM [facility] DERMATOPATHOLOGY LABORATORY at [address] [facility] Clinical History A: R/O nevus, irritated. B:-C: R/O BCC, irritated, non-healing. D-F: R/O lentiginous nevus vs MM. Irregular color. 8 11:54 AM [facility] DERMATOPATHOLOGY LABORATORY Gross Description Specimen A: Received is one formalin filled container labeled with the patient's name and designated left zygoma. The specimen consists of a shave measuring 8v1e6gn. Jar 0. Specimen B: Received is one formalin filled container labeled with the patient's name and designated left lower cheek. The specimen consists of a shave measuring 8l3j2sf. Jar 0. Specimen C: Received is one formalin filled container labeled with the patient's name and designated right thigh. The specimen consists of a shave measuring 3r7s7wu. Jar 0. Specimen D: Received is one formalin filled container labeled with the patient's name and designated right mid back. The specimen consists of a shave measuring 8v4p4oc. Jar 0. Specimen E: Received is one formalin filled container labeled with the patient's name and designated mid upper back. The specimen consists of a shave measuring 22u5n7hg. Jar 0. Specimen F: Received is one formalin filled container labeled with the patient's name and designated mid low back. The specimen consists of a shave measuring 2d8i8ig. Jar 0. 8 11:54 AM [facility] DERMATOPATHOLOGY LABORATORY Microscopic Description Specimen A. SKIN, left zygoma: There are nests of cytologically bland melanocytes within the dermis that mature with depth. Specimen B. SKIN, left lower cheek: There is melanin pigment in the stratum corneum. There are nests of melanocytes at the dermal-epidermal junction and within the dermis. Specimen C. SKIN, right thigh: An asymmetric proliferation of melanocytes is present in the epidermis and dermis. There are two discrete populations of melanocytes. There are larger epithelioid melanocytes spread in a lentiginous along the dermal-epidermal junction as well as forming nests in the dermis. The second population is characterized by pleomorphic spindled melanocytes with niles cytoplasm forming cohesive sheets in the dermis. The melanocytes are arranged in irregular, variably-sized nests and single cells. Upward migration of single melanocytes is focally noted. The melanocytes exhibit large nuclei and prominent nucleoli. The melanocytes are highlighted by MART-1/Melan-A and S100 immunohistochemical stain. An HMB-45 stain is diffusely positive in the epidermis and dermis. A p16 stain is preserved. This lesion is present at the margin of the specimen. Additional deeper sections were obtained and reviewed. COMMENT: This case was also reviewed by Dr. Lore Bradley who agrees with the diagnosis. See synoptic report. Specimen D. SKIN, right mid back: This is a compound nevus. There is melanin pigment in the stratum corneum. There is architectural disorder characterized by a lentiginous proliferation of melanocytes between irregular nevus nests of cells along the dermal epidermal junction. There is underlying fibroplasia of the papillary dermis. The intradermal component is bland in appearance and matures with depth. (Compound Dev's Nevus or Compound Dysplastic Nevus) Specimen E. SKIN, mid upper back: This is a compound nevus. There is melanin pigment within the stratum corneum. There is architectural disorder characterized by a lentiginous proliferation of melanocytes between irregular nests of cells along the dermal-epidermal junction, highlighted by MART-1/Melan-A immunohistochemical staining. HMB45 staining highlights zonal staining. There is underlying fibroplasia of the papillary dermis. The intradermal component is bland appearance and matures with depth. Original and deeper sections were reviewed. (Compound Dev's Nevus or Compound Dysplastic Nevus) This case was also reviewed by Dr. Violeta Ferrer who agrees with the diagnosis. Specimen F. SKIN, mid low back: This is a compound nevus. There is melanin pigment in the stratum corneum. There is architectural disorder characterized by a lentiginous proliferation of melanocytes between irregular nevus nests of cells along the dermal epidermal junction. There is underlying fibroplasia of the papillary dermis. The intradermal component is bland in appearance and matures with depth. (Compound Dev's Nevus or Compound Dysplastic Nevus) 8 11:54 AM [facility] DERMATOPATHOLOGY LABORATORY Disclaimer An external and internal positive and negative controls are appropriate for the histochemical, immunohistochemical and immunofluorescence stain(s) in this case (if any), except where stated explicitly. The performance characteristics of the stain(s) cited in this report were developed and its performance characteristic determined by the Dermatopathology Laboratory at [facility]. These tests need not be, and therefore are not, approved by the [place] Food and Drug Administration. The tests are used for clinical purposes. Billing Codes Specimen Charges Stain Charges 26660 48731 11288 66877 07967 75889 1 1 1 1 1 1 71830 00228 08147 40014 26558 86438 1 1 1 1 1 1 8 11:54 AM [facility] DERMATOPATHOLOGY LABORATORY Embedded Images 8 11:54 AM [facility] DERMATOPATHOLOGY LABORATORY Synoptic Report MELANOMA OF THE SKIN: Biopsy (Melanoma Bx - C) SPECIMEN Procedure: Biopsy, shave Specimen Laterality: Right TUMOR Tumor Site: Skin of lower limb and hip: right thigh : Histologic Type: Melanoma, not otherwise classified Maximum Tumor (Breslow) Thickness in Millimeters (mm): At least: 0.9 Millimeters (mm) : Tumor is present at the surgical margin; therefore, final depth may exceed current one. Tumor Extent: Macroscopic Satellite Nodule(s): Not identified Ulceration: Not identified Anatomic (Dev) Level: III (melanoma fills and expands papillary dermis) Accessory Findings: Mitotic Rate: None identified Microsatellite(s): Not identified Lymphovascular Invasion: Not identified Neurotropism: Not identified Tumor-Infiltrating Lymphocytes: Present, nonbrisk Tumor Regression: Not identified MARGINS: Peripheral Margins: Uninvolved by invasive melanoma Status of Melanoma In Situ Involvement at Peripheral Margins: Involved by melanoma in situ Deep Margin: Involved by invasive melanoma PATHOLOGIC STAGE CLASSIFICATION (pTNM, AJCC 8th Edition): Primary Tumor (pT): pT1b Comment(s) Comment(s): Dr. Guadalupe Bradley has also reviewed this case and agrees with the diagnosis. 8 11:54 AM ROUTE DELIVERER DERMATOPATHOLOGY LABORATORY Pathology/Cytology TISSUE SPECIMEN FROM SKIN / Unknown 05/01/2018 05/07/2018 11:57 AM ROUTE DELIVERER Miscellaneous samples (specimen) TISSUE SPECIMEN FROM SKIN / Unknown 05/01/2018 05/07/2018 11:57 AM ROUTE DELIVERER Miscellaneous samples (specimen) TISSUE SPECIMEN FROM SKIN / Unknown 05/01/2018 05/07/2018 11:57 AM ROUTE DELIVERER Miscellaneous samples (specimen) TISSUE SPECIMEN FROM SKIN / Unknown 05/01/2018 05/07/2018 11:57 AM ROUTE DELIVERER Miscellaneous samples (specimen) TISSUE SPECIMEN FROM SKIN / Unknown 05/01/2018 05/07/2018 11:57 AM ROUTE DELIVERER Miscellaneous samples (specimen) TISSUE SPECIMEN FROM SKIN / Unknown 05/01/2018 05/07/2018 11:57 AM ROUTE DELIVERER us Danielle Puckett DO LAB - PATHOLOGY/CYTOLOGY ORDERABLES Final Result DERMATOPATHOLOGY LABORATORY [facility] - Department of Dermatology [address] [place] [address], 5th Floor Lab [address] [phone] documented in this encounter Visit Diagnoses Not on filedocumented in this encounter Care Teams Concrete Mixing Plant Laborer Relationship Specialty Start Date End Date Nayan Berumen MD [address] [place] [phone] PCP - General 05/14/18 documented as of this encounter
--- OUTSIDE RECORDS SUMMARY | 2024-12-31 08:17 | XMS_ITS | Encounter Summary ---
Author Organization [facility] Health Address [address] [facility] [place] [address] Care Team Providers Care Interdisciplinary Professor Name Role Phone Nayan Berumen MD Primary Care Provider [phone] Encounter Details Date Type Department Care Team (Late st Contact Info) Description 01/17/2019 Lab Requisition [facility] Care DermPath Lab [address] [facility], [place] [phone] Clementine Bergman MD [address] [facility] 3 [place] [address] Social History Tobacco Use Types Packs/Day Years Used Date Smoking Tobacco: Former Cigarettes Q uit: 07/14/2015 Smokeless Tobacco: Never Alcohol Use Standard Drinks/Week Comments No 0 (1 standard drink = 0.6 oz pur e alcohol) Comments Unknown Sex and Gender Information Value Date Recorded Sex Assigned at Not on file Legal Sex Female 2:00 PM 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 Gender Identity Not on file Sexual Orientation Not on file documented as of this encounter Plan of Treatment Not on file documented as of this encounter Procedures Procedure Name Priority Date/Time Associated Diagnosis Comments DERMATOPATHOLOGY Routine 01/16/2019 12:0 0 AM CDT documented in this encounter Results * DERMATOPATHOLOGY (01/16/2019 12:00 AM CDT) Case Report Dermatopathology Report Case: [id number] Authorizing Provider: Clementine Bergman MD Collected: 01/16/2019 12:00 AM Pathologist: Sari Bradley MD Received: 01/17/2019 11:47 AM Specimens: A) - Skin, right jaw B) - Skin, right abdomen 1:18 PM CDT DERMATOPATHOLOGY LABORATORY Final Diagnosis Specimen A. SKIN, right jaw: INTRADERMAL MELANOCYTIC NEVUS, ERODED (D22.39) FOLLICULITIS, SUPPURATIVE (L73.8) Specimen B. SKIN, right abdomen: INTRADERMAL MELANOCYTIC NEVUS (D22.5) 1:18 PM CDT DERMATOPATHOLOGY LABORATORY at 1318 CDT Clinical History A-B: R/O nevus, irritated HX of MM x2 pink papule. 1:18 PM CDT DERMATOPATHOLOGY LABORATORY Gross Description Specimen A: Received is one formalin filled container labeled with the patient's name and designated right jaw. The specimen consists of a shave measuring 6x5x2 mm. Jar 0. Specimen B: Received is one formalin filled container labeled with the patient's name and designated right abdomen. The specimen consists of a shave measuring 8x7x4 mm. Jar 0. 1:18 PM CDT DERMATOPATHOLOGY LABORATORY Microscopic Description Specimen A. SKIN, right jaw: The epidermis is eroded. There are nests of cytologically bland melanocytes within the dermis that mature with depth. Sections show rupture of the follicular infundibulum, with numerous neutrophils. Specimen B. SKIN, right abdomen: There are nests of cytologically bland melanocytes within the dermis that mature with depth. 1:18 PM CDT DERMATOPATHOLOGY LABORATORY Disclaimer An external and internal positive and negative controls are appropriate for the histochemical, immunohistochemical and immunofluorescence stain(s) in this case (if any), except where stated explicitly. The performance characteristics of the stain(s) cited in this report were developed and its performance characteristic determined by the Dermatopathology Laboratory at [facility], directed by Dr. Lore Bradley. These tests need not be, and therefore are not, approved by the [place] Food and Drug Administration. The tests are used for clinical purposes. Billing Codes Specimen Charges Stain Charges 43878 56504 1 1 1:18 PM CDT DERMATOPATHOLOGY LABORATORY Embedded Images 1:18 PM CDT DERMATOPATHOLOGY LABORATORY Pathology/Cytology TISSUE SPECIMEN FROM SKIN / Unknown 01/16/2019 01/17/2019 11:47 AM CDT Miscellaneous samples (specimen) TISSUE SPECIMEN FROM SKIN / Unknown 01/16/2019 01/17/2019 11:47 AM CDT us Clementine Bergman MD LAB - PATHOLOGY/CYTOLOGY ORD ERABLES Final Result DERMATOPATHOLOGY LABORATORY [facility] - Department of Dermatology [address] [place] [address], 5th Floor Lab [address] [phone] documented in this encounter Visit Diagnoses Not on filedocumented in this encounter Care Teams Interdisciplinary Professor Relationship Specialty Start Date End Date Nayan Berumen MD [address] [place] [address] PCP - General 05/14/18 documented as of this encounter
--- NOTE | 2024-12-31 12:58 | P.PCNPFT_ITS ---
PFT Procedure Performed PFT Procedure Performed Spirometry with Pre/Post Bronchodilator Plethysmography (Lung Vol) Diffusing Cap (DLCO) Flow Vol Loop PFT Interpretation This is a pulmonary function test with pre and post-bronchodilator spirometry, plethysmography and diffusing capacity. The test was performed and results interpreted in accordance with the 2019 and 2005 ATS/ERS Task Force guidelines respectively using the Global Lung Function Initiative-2012 reference equations. Patient demonstrated good effort and cooperation. Reproducibility criteria were met. The quality of the pre bronchodilator spirometry maneuver was Grade A and post bronchodilator spirometry maneuver was Grade A. Findings: Spirometry: There is decreased maximal expiratory airflow at all lung volumes. The contour the inspiratory flow tracing is normal. The pre bronchodilator FVC is 2.50 L, 67% predicted. The pre bronchodilator FEV1 is 1.71 L, 59% predicted. The pre bronchodilator FEV1: FVC ratio 69%. The post bronchodilator FVC is 2.90 L, representing a 16% increase. The post bronchodilator FEV1 is 2.10 L, re presenting a 22% increase. The post bronchodilator FEV1: FVC ratio 72%. Plethysmography: The total lung capacity is 4.54 L, 83% predicted. The functional residual capacity is 2.25 L, 72% predicted. The residual volume is 1.65 L, 82% predicted. The slow vital capacity is 2.90 L. Diffusing capacity: The diffusing capacity unadjusted for hemoglobin and carboxyhemoglobin is 19.4, 83% predicted. The diffusing capacity adjusted for alveolar volume is 4.85, 110% predicted. Impression: The slow vital capacity is greater than forced vital capacity with decreased maximal expiratory airflow and a decreased FEV1: FVC ratio. This is suggestive of small airways disease. There is significant improvement after inhaling a single dose of albuterol. The lung volumes are normal. The diffusing capacity is normal. There are no prior studies for comparison
== END 2024-12-31 08:09 | disposition home or self-care (01) ==
PROVIDERS: PCP Family Medicine; Visit Provider Nurse Practitioner Adult Health
DX: J45.909 Unspecified asthma, uncomplicated (principal)
CPT/HCPCS: 94060; 94726; 94729

== ENCOUNTER 2025-04-11 10:23 | Outpatient (CLI) | payer BC, SELFPAY ==
--- NOTE | ~2025-04-11 | DEXA_ITS ---
Bone Density Report Name: NICHELLE ALVARADO Age: 54 Sex: Female Ethnicity: White Date of : 1970 Indication: postmenopausal; screening for osteoporosis; Referring Provider: KAMILLE, JESSICA Study: Bone densitometry was performed. Exam Date: April 11, 2025 Accession number: [id number] Bone Density: Region BMD T-score Z-score Classification AP Spine(L1-L4) 1.054 0.1 1.1 Normal Femoral Neck (Left) 0.843 -0.1 1.0 Normal Total Hip (Left) 0.938 0.0 0.6 Normal Femoral Neck (Right) 0.867 0.2 1.2 Normal Total Hip (Right) 0.917 -0.2 0.5 Normal Total Hip Mean 0.927 -0.1 0.6 Normal World Health Organization criteria for BMD impression classify patients as: Normal (T-score at or above -1.0), Osteopenia (T-score between -1.0 and -2.5), or Osteoporosis (T-score at or below -2.5). 10-year Fracture Risk: FRAX not reported because: All T-scores for Spine Total, Hip Total, Femoral Neck at or above -1.0 Previous Exams: -- Region Exam Age BMD T-score BMD Change BMD Change Date g/cm2 vs Baseline vs Previous -- AP Spine (L1-L4) 04/11/2025 54 1.054 0.1 -1.8%# -1.8%# 02/13/2021 50 1.073 0.2 Total Hip(Left) 04/11/2025 54 0.938 0.0 -5.8%# -5.8%# 02/13/2021 50 0.995 0.4 Total Hip(Right) 04/11/2025 54 0.917 -0.2 -3.6%# -3.6%# 02/13/2021 50 0.951 0.1 -- *Denotes significance at 95% confidence level, LSC for AP Spine = 0.022 g/cm2, LSC for Total Hip = 0.027 g/cm2 # Denotes dissimilar scan types or analysis methods Clinical Information Provided by Patient: Has used the following medications: HRT (i.e. estrogen/hormone therapy), Vitamin D Patient maximum height was 67 Menopause Age: 48 No regular weight bearing exercise Does not regularly consume dairy products Drinks caffeinated beverages Onset of menses at age 12 Number of children 0 Impression: The patient has normal bone mass. Unable to evaluate interval change due to the use of different scan modes. Discussion: BONE DENSITY IS ABOVE THE MINIMUM DESIRABLE LEVEL AT ALL SKELETAL SITES TESTED. This patient?s bone mineral density is above the minimum desirable level (T-score -1.0 or better) at all sites measured. The patient should follow a healthful lifestyle (good nutrition with adequate calcium and vitamin D, and appropriate weight-bearing exercise). Follow-Up: Consider repeating this study in 5 years or sooner if there is some new clinical indication. Reported by: ERWIN on 04/11/2025 10:45:00 AM. Reviewed, dictated and finalized at location A.
== END 2025-04-11 10:24 | disposition home or self-care (01) ==
LOC: MICIMG 10:23
PROVIDERS: PCP Family Medicine
DX: Z13.820 Encounter for screening for osteoporosis (principal); Z78.0 Asymptomatic menopausal state
CPT/HCPCS: 77080

== ENCOUNTER 2025-05-21 09:13 | Outpatient (CLI) | payer BC, SELFPAY ==
--- NOTE | ~2025-05-21 | US_ITS ---
US abdomen complete EXAMINATION: US Abdomen Complete INDICATION: Right upper quadrant pain. Nausea and vomiting. Reflux. Dizziness. PROCEDURE: Realtime High Resolution abdomen ultrasound. COMPARISON: CT dated 03/03/2016 FINDINGS: Gallbladder is surgically absent. Common bile duct measures 7 mm. Liver echotexture within normal limits without focal mass. Pancreas within normal limits. Pancreatic tail is obscured by bowel gas. Spleen is unremarkeable. Right renal parenchyma is atrophic. Right kidney measures approximately 8.4 cm. Left renal length is 11.3 cm. Visualized aspects of the aorta and IVC are within normal limits. Portal vein is patent. No sonographic Luz's sign indicated by the technologist. IMPRESSION: 1: Mild right renal atrophy. 2: Status post cholecystectomy with expected prominence of the common bile duct. Reviewed, dictated and finalized at location I. [facility]OR PRINT IMPRESSION: 1: Mild right renal atrophy. 2: Status post cholecystectomy with expected prominence of the common bile gonzalo t.
== END 2025-05-21 09:14 | disposition home or self-care (01) ==
LOC: MICIMG 09:13
PROVIDERS: PCP Family Medicine; Visit Provider Nurse Practitioner Adult Health
DX: K21.9 Gastro-esophageal reflux disease without esophagitis (principal); Z90.49 Acquired absence of other specified parts of digestive tract
CPT/HCPCS: 76700